=== PATIENT | male | born 1945 | race Caucasian/White ===

== ENCOUNTER 2024-11-26 12:43 | Outpatient (AMB) | payer MEDICARE, SELFPAY ==
--- NOTE | 2024-11-26 12:58 | MHC.OFFVIS ---
Vital Signs 11/26/24 13:01 Height 5 ft 8.7 in Weight 159 lb 13.362 oz BMI 23.8 BP 132/50 L Blood Pressure Location Lt brachial Position Sitting Pulse 58 Pulse Source Pulse Oximeter Pulse Oximetry (%) 90 L Oxygen Delivery Method Nasal Cannula Oxygen Flow Rate 6 Intake Visit Reasons: copd Allergies No Known Allergies Allergy (Verified 11/26/24 13:05) HPI Comments Details: The patient is here for pulmonary evaluation. The patient is a 78-year-old male with a known history of emphysema COPD for many years. He has been oxygen dependent since 2020. He was in his usual state health until back in 10/17/2024 when he started developing a cold. It subsequently resulting worsening respiratory symptoms weakness and he was taken to [facility]. There he had a CT scan of the chest. The CT scan was personally by me. It demonstrated extensive emphysema bilaterally all the way to the mid lung area. In addition to that some airspace disease throughout both lungs consistent with multilobar pneumonia. He was admitted placed on additional oxygen given antibiotics. His viral respiratory panel was negative. Urine Legionella and strep antigen negative. Microbiology was all negative. He was subsequently treated had a repeat CT scan of the chest which I also personally reviewed on 11/11/2024 demonstrating interval improvement of the airspace disease. 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 The patient has been on oxygen 6 L pulse with activity and also sleeps with the oxygen at 2.5 L. He has not been using oxygen at rest. He has not had PFTs in some time. Will go ahead and request that. The family is concerned that he is still coughing up mucus and is difficult for him to expectorate. He has a hard time clearing his secretions at this time. For that reason will request an Acapella valve for him that he can use for chest physical therapy. We will optimize his respiratory therapy by continuing the Breztri and also adding Ohtuvayre nebulized therapy in addition to adding azithromycin 3 times a week. He will come back for PFTs and EKG and blood work including a blood gas since his CO2 was elevated at 51 mmHg the last time was checked when he was sick back in September. Once the patient is stable on medication therapy and after his PFTs will have him come back and will talk about the importance of outpatient pulmonary rehabilitation. [facility] Medical History (Updated 11/26/24 @ 20:32 by Jan Carbajal MD) Chronic respiratory failure Pneumonia Social History (Updated 11/26/24 @ 13:04 by Rohini Diaz CMA) Patient Tobacco Use Status: Former Tobacco user Review of Systems Const Reports fatigue Eyes Denies change in vision ENT Reports dysphagia, Reports epistaxis, Reports nasal congestion and Reports nasal discharge Card Denies chest pain, Reports dyspnea and Reports dyspnea on exertion Resp Reports chest congestion, Reports cough, Reports dyspnea, Reports dyspnea on exertion and Reports wheezing GI Reports dysphagia Musc Reports no additional complaints Skin/Breast Denies rash Endo Reports fatigue Jonathan/Lymph Reports no additional complaints Aller/Immun Reports wheezing Physical Exam Vital Signs: Last Vital Signs Pulse 58 11/26/24 13:01 BP 132/50 L 11/26/24 13:01 Pulse Ox 90 L 11/26/24 13:01 Oxygen Delivery Method Nasal Cannula 11/26/24 13:01 Oxygen Flow Rate 6 11/26/24 13:01 BMI result Body Mass Index 23.8 Const General: comfortable HEENT Head: Yes normocephalic Neck Neck: Yes supple Chest Chest palpation & inspection: normal inspection of the chest Resp Effort & Inspection: normal respiratory effort and prolonged expiratory phase Auscultation: diminished lung sounds Cardio Heart sounds: S1 normal heart sound present and S2 normal heart sound present GI Palpation (GI): Soft to palpation Skin General skin exam: no rashes or lesions noted Extrem General: No clubbing and No cyanosis Results Reviewed Results Reviewed: Personally reviewed CT chest 09/2024 and 10/2024 with extensive emphysema and resolving nodular airspace disease Assessment & Plan Assessment & Plan (1) COPD (chronic obstructive pulmonary disease): Code(s): J44.9 - Chronic obstructive pulmonary disease, unspecified Category: Medical Qualifiers: COPD type: emphysema Emphysema type: centrilobular Qualified Code(s): J43.2 - Centrilobular emphysema (2) Pneumonia: Code(s): J18.9 - Pneumonia, unspecified organism Category: Medical Qualifiers: Pneumonia type: due to unspecified organism Laterality: bilateral Lung location: unspecified part of lung Qualified Code(s): J18.9 - Pneumonia, unspecified organism (3) Chronic respiratory failure: Code(s): J96.10 - Chronic respiratory failure, unspecified whether with hypoxia or hypercapnia Category: Medical Qualifiers: Respiratory failure complication: hypoxia and hypercapnia Qualified Code(s): J96.11 - Chronic respiratory failure with hypoxia; J96.12 - Chronic respiratory failure with hypercapnia Plan continue Breztri Add Azithromycin MWF Add Ohtuvayre nebs BID JEN as needed Prednisone taper, decreasing by 5mg every 5 days until down to 10mg daily PFTs and 6MWT EKG Bloodwork , bloodgas Orders: Orders PFT pulmonary function test Today J18.9 - Pneumonia, unspecified organism, J44.9 - Chronic obstructive pulmonary disease, unspecified Basic Metabolic Panel Today J18.9 - Pneumonia, unspecified organism, J44.9 - Chronic obstructive pulmonary disease, unspecified Overnight Pulse Oximetry Today J44.9 - Chronic obstructive pulmonary disease, unspecified Venous Blood Gas Today J18.9 - Pneumonia, unspecified organism, J44.9 - Chronic obstructive pulmonary disease, unspecified Immunoglobulins,IgG IgA IgM Today J18.9 - Pneumonia, unspecified organism, J44.9 - Chronic obstructive pulmonary disease, unspecified Erythrocyte Sedimentation Rate Today J18.9 - Pneumonia, unspecified organism, J44.9 - Chronic obstructive pulmonary disease, unspecified ECG 12 lead EKG Today J18.9 - Pneumonia, unspecified organism, J44.9 - Chronic obstructive pulmonary disease, unspecified Medications: New prednisone 5 mg PO DAILY 30 tabs 3RF 30 days prednisone 20 mg (2 x 10 mg) PO DAILY 60 tabs 3RF 30 days Coding Level of Care Code New Pt Level 5 (78929) Diagnoses Centrilobular emphysema J43.2 COPD type: emphysema Emphysema type: centrilobular Pneumonia of both lungs due to infectious organism, unspecified part of lung J18.9 Pneumonia type: due to unspecified organism Laterality: bilateral Lung location: unspecified part of lung Chronic respiratory failure with hypoxia and hypercapnia J96.11; J96.12 Respiratory failure complication: hypoxia and hypercapnia Time Spent (min) 60
[2024-11-26 13:01] VITALS: BP 132/50; PULSE 58; O2SAT 90; BMI 23.8
--- OUTSIDE RECORDS SUMMARY | 2024-11-26 14:50 | XMS_ITS | Clinical Summary ---
Author Organization [facility] ity Address [address] [place] [address] Care Team Providers Care Residency Program Coordinator Name Role Phone Jose Maria Diehl MD Primary Care Provide r Social History Tobacco Use Types Packs/Day Years Used Date Smoking Tobacco: Former Smokeless Tobacco: Former Sex and Gender Information Value Date Recorded Sex Assigned at Not on file Gender Identity Not on file Sexual Orientation Not on file Obstetrics History Last Filed Vital Signs Vital Sign Reading Time Taken Comments Blood Pressure 154/79 07/10/2023 2:01 PM EDT L A rm Pulse 57 07/10/2023 2:01 PM EDT Temperature - - Respiratory Rate - - Oxygen Saturation - - Inhaled Oxygen Concentration - - Weight 72.1 kg (159 lb) 07/10/2023 2:01 PM EDT Height 177.8 cm (5' 10 ) 07/10/2023 2:01 PM EDT Body Mass Index 22.81 07/10/2023 2:01 PM EDT Plan of Treatment Health Maintenance Due Date Last Done Comments Diabetes: Annual GFR (Glomer ular Filtration Rate) 1945 Pneumococcal Vaccine: 65+ Ye ars (1 of 2 - PCV) 1953 Diabetes: Annual Foot Exam 1957 Diabetes: Annual Retina Eye Exam 1957 DTaP,Tdap,and Td Vaccines (1 - Tdap) 1966 Zoster Vaccines (1 of 2) 1997 Cholesterol Screening (Lipid Panel) 10/07/2022 Depression Screening 10/07/2022 Falls Risk Assessment 10/07/2022 Hepatitis C Screening 10/07/2022 Social Influencers of Health Screening 10/07/2022 Diabetes: Annual Urine Albumin-Creatinine Ratio (uACR) 10/14/2022 Diabetes: Blood Sugar Contro l Test (HGBA1C) 10/14/2022 Hypertension/CHF/CAD Annual BMP Blood Test 10/14/2022 RSV Immunization Patients 60 + Years Old (1 - 1-dose 75+ series) 2022 COVID-19 Vaccine (2023-2 5 season) 2024 Influenza Vaccine (#1) 2024 HIB Vaccines Aged Out No longer eligi ble based on patient's age to complete this topic HPV Vaccines Aged Out No longer eligi ble based on patient's age to complete this topic Hepatitis A Vaccines Aged Out No long er eligible based on patient's age to complete this topic Hepatitis B Vaccines Aged Out No long er eligible based on patient's age to complete this topic IPV Vaccines Aged Out No longer eligi ble based on patient's age to complete this topic MMR Vaccines Aged Out No longer eligi ble based on patient's age to complete this topic Meningococcal ACWY Vaccine Aged Out N o longer eligible based on patient's age to complete this topic RSV Immunization Patients Un darryl 20 months Aged Out No longer eligible b ased on patient's age to complete this topic Varicella Vaccines Aged Out No longer eligible based on patient's age to complete this topic Care Teams Residency Program Coordinator Relationship Specialty Start Date End Date Jose Maria Diehl MD [address] [place] [address] [place] PCP - General Internal Medicine 10/08/19
== END 2024-11-26 13:47 | disposition home or self-care (01) ==
PROVIDERS: PCP Internal Medicine; Visit Provider Hospitalist
DX: J43.2 Centrilobular emphysema (principal); J18.9 Pneumonia, unspecified organism; J96.11 Chronic respiratory failure with hypoxia; J96.12 Chronic respiratory failure with hypercapnia
CPT/HCPCS: 99205

== ENCOUNTER → 2024-11-26 12:43 | Outpatient (BNVA) | payer MEDICARE, SELFPAY | PROVIDERS: PCP Internal Medicine; Visit Provider Hospitalist | DX: J43.2 Centrilobular emphysema (principal); J18.9 Pneumonia, unspecified organism; J44.9 Chronic obstructive pulmonary disease, unspecified; J96.11 Chronic respiratory failure with hypoxia; J96.12 Chronic respiratory failure with hypercapnia; Z99.81 Dependence on supplemental oxygen | CPT/HCPCS: 99202 ==

== ENCOUNTER 2024-12-12 16:01 | Outpatient (REF) | payer MEDICARE, SELFPAY ==
--- OUTSIDE RECORDS SUMMARY | 2024-12-12 16:03 | XMS_ITS | Clinical Summary ---
Author Organization [facility] ity Address [address] [place] [address] Care Team Providers Care Hearings Reporter Name Role Phone Jose Maria Diehl MD Primary Care Provide r Social History Tobacco Use Types Packs/Day Years Used Date Smoking Tobacco: Former Smokeless Tobacco: Former Sex and Gender Information Value Date Recorded Sex Assigned at Not on file Legal Sex Male 6:43 AM EST Gender Identity Not on file Sexual Orientation [...] (Glomer ular Filtration Rate) 1945 Pneumococcal Vaccine: 50+ Ye ars (1 of 2 - PCV) [...] age to complete this topic Care Teams Hearings Reporter Relationship Specialty Start Date End Date Jose Maria Diehl MD [address] [place], [place] [address]jesus Erica, [place] PCP - General Internal Medicine 10/08/19
--- NOTE | 2024-12-12 16:05 | PFT_ITS ---
Indication: COPD Spirometry [FEV1 to FVC 34%; FEV1 1.12 L; FVC 3.26 L. no significant response to bronchodilators noted.] Lung Volumes [Total lung capacity 102% predicted; residual volume 124% predicted] Diffusion Capacity [DLCO 26% predicted] Comparisons [none] Interpretation [Station obstructive ventilatory defect consistent with severe COPD. No significant response to bronchodilators noted. Lung volume with a trend of air trapping due to the COPD. The patient does have his severe diffusion impairment likely seconday to the COPD. Clinical correlation warranted.] MTDD
== END 2024-12-12 16:02 | disposition home or self-care (01) ==
LOC: HO.RESP 16:01
PROVIDERS: PCP Internal Medicine; Visit Provider Hospitalist
DX: J44.9 Chronic obstructive pulmonary disease, unspecified (principal); J18.9 Pneumonia, unspecified organism
CPT/HCPCS: 94010; 94640; 94727; 94729

== ENCOUNTER → 2024-12-12 16:05 | Outpatient (BNV) | payer MEDICARE, SELFPAY | PROVIDERS: PCP Internal Medicine; Visit Provider Hospitalist | DX: J44.9 Chronic obstructive pulmonary disease, unspecified (principal) | CPT/HCPCS: 94060; 94727; 94729 ==

== ENCOUNTER 2024-12-25 10:52 | Outpatient (AMB) | payer MEDICARE, SELFPAY ==
[2024-12-25 11:05] VITALS: BP 124/50; PULSE 56; O2SAT 91; BMI 24.8
--- NOTE | 2024-12-25 11:05 | MHC.OFFVIS ---
Vital Signs 12/25/24 11:05 Height 5 ft 8.7 in Weight 166 lb 7.184 oz BMI 24.8 BP 124/50 L Blood Pressure Location Lt brachial Position Sitting Pulse 56 Pulse Source Pulse Oximeter Pulse Oximetry (%) 91 L Oxygen Delivery Method Nasal Cannula Oxygen Flow Rate 6 Intake Visit Reasons: COPD/6MW Allergies No Known Allergies Allergy (Verified 12/25/24 11:07) HPI Comments Details: The patient is a 79-year-old male with a known history of emphysema COPD for many years. He has been oxygen dependent since 2020. He was in his usual state health until back in 10/17/2024 when he started developing a cold. It subsequently resulting worsening respiratory symptoms weakness and he was taken to [facility]. There he had a CT scan of the chest. The CT scan was personally by me. It demonstrated extensive emphysema bilaterally all the way to the mid lung area. In addition to that some airspace disease throughout both lungs consistent with multilobar pneumonia. He was admitted placed on additional oxygen given antibiotics. His viral respiratory panel was negative. Urine Legionella and strep antigen negative. Microbiology was all negative. He was subsequently treated had a repeat CT scan of the chest which I also personally reviewed on 11/11/2024 demonstrating interval improvement of the airspace disease. 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 The patient has been on oxygen 6 L pulse with activity and also sleeps with the oxygen at 2.5 L. He has not been using oxygen at rest. He has not had PFTs in some time. Will go ahead and request that. The family is concerned that he is still coughing up mucus and is difficult for him to expectorate. He has a hard time clearing his secretions at this time. For that reason will request an Acapella valve for him that he can use for chest physical therapy. We will optimize his respiratory therapy by continuing the Breztri and also adding Ohtuvayre nebulized therapy in addition to adding azithromycin 3 times a week. He will come back for PFTs and EKG and blood work including a blood gas since his CO2 was elevated at 51 mmHg the last time was checked when he was sick back in September. Once the patient is stable on medication therapy and after his PFTs will have him come back and will talk about the importance of outpatient pulmonary rehabilitation. 12/25/2024 the patient is here for a pulmonary follow-up visit. Overall he is doing fair. He continues to have significant shortness of breath. He was not able to get the new nebulized therapy, Ohtuvayre, so will switch him over to DuoNeb b.i.d. seems to be tolerating it just fine. He continues on his respiratory inhalers. The patient continues uses oxygen at 5-6 L pulse. We did do a brief walking oximetry today indeed he does require between 5-6 L pulse to maintain a pulse ox in the low 90s. Therefore explained to him that he is not a good candidate for battery operated POC because is going to eat up the battery very quickly and is going to cause him more headaches. In the future though we can consider a continuous portable oxygen concentrator. He is going to be started pulmonary rehabilitation soon so will be able to better address the question. He did have PFTs which we personally reviewed demonstrating severe COPD with trend air trapping and severe diffusion impairment likely secondary to emphysematous changes. Therefore, he will continue with the oxygen. As far as the prednisone he is not able to get off the prednisone we tried cutting down by 5 mg but he was not able to do so. Therefore, I sent him 2.5 mg tablets and he could try decreasing by 2.5 instead to see if we can get him down to a baseline of 10 mg daily. I am hopeful that with the additional theophylline that could help accentuate the effects of the prednisone and hopefully decrease the medication that weight. We did talk about the prednisone and ultimately will need to have blood work for the initially come in the next few weeks and undergo blood work including a blood gas was requested the last time [facility] Medical History (Updated 11/26/24 @ 20:32 by Jan Carbajal MD) Chronic respiratory failure Pneumonia Social History Patient Tobacco Use Status: Former Tobacco user Review of Systems Const Denies fever(s) Eyes Denies change in vision ENT Reports dysphagia, Reports epistaxis, Reports nasal congestion and Reports nasal discharge Card Denies chest pain, Reports dyspnea and Reports dyspnea on exertion Resp Reports chest congestion, Reports cough, Reports dyspnea, Reports dyspnea on exertion and Reports wheezing GI Reports dysphagia Musc Reports no additional complaints Skin/Breast Denies rash Jonathan/Lymph Reports no additional complaints Aller/Immun Reports wheezing Physical Exam Vital Signs: Last Vital Signs Pulse 56 12/25/24 11:05 BP 124/50 L 12/25/24 11:05 Pulse Ox 91 L 12/25/24 11:05 Oxygen Delivery Method Nasal Cannula 12/25/24 11:05 Oxygen Flow Rate 6 12/25/24 11:05 BMI result Body Mass Index 24.8 Const General: comfortable HEENT Head: Yes normocephalic Neck Neck: Yes supple Chest Chest palpation & inspection: normal inspection of the chest Resp Effort & Inspection: normal respiratory effort and prolonged expiratory phase Auscultation: diminished lung sounds Cardio Heart sounds: S1 normal heart sound present and S2 normal heart sound present GI Palpation (GI): Soft to palpation Skin General skin exam: no rashes or lesions noted Extrem General: No clubbing and No cyanosis Assessment & Plan Assessment & Plan (1) COPD (chronic obstructive pulmonary disease): Code(s): J44.9 - Chronic obstructive pulmonary disease, unspecified Category: Medical Qualifiers: COPD type: emphysema Emphysema type: centrilobular Qualified Code(s): J43.2 - Centrilobular emphysema (2) Chronic respiratory failure: Code(s): J96.10 - Chronic respiratory failure, unspecified whether with hypoxia or hypercapnia Category: Medical Qualifiers: Respiratory failure complication: hypoxia and hypercapnia Qualified Code(s): J96.11 - Chronic respiratory failure with hypoxia; J96.12 - Chronic respiratory failure with hypercapnia Plan continue Breztri continue Azithromycin MWF could not get Ohtuvayre nebs BID continue Duoneb BID JEN as needed Prednisone taper, decreasing by 2.5mg every 5-10 days days until down to 10mg daily start rehab EKG Bloodwork , bloodgas consider Daliresp F/U 3-4 months Orders: Orders Theophylline Today J43.2 - Centrilobular emphysema Medications: New prednisone 5 mg (2 x 2.5 mg) PO DAILY 30 days 60 tabs 3RF theophylline ER 200 mg PO Q12H 30 days 60 tabs 5RF Coding Level of Care Code Est Pt Level 4 (96158) Diagnoses Centrilobular emphysema J43.2 COPD type: emphysema Emphysema type: centrilobular Chronic respiratory failure with hypoxia and hypercapnia J96.11; J96.12 Respiratory failure complication: hypoxia and hypercapnia Time Spent (min) 18
--- OUTSIDE RECORDS SUMMARY | 2024-12-25 12:56 | XMS_ITS | Clinical Summary ---
Author Organization [facility] Address [address] [place] [address] Care Team Providers Care Regional Climate Change Analyst Name Role Phone Jose Maria Diehl MD [...] Annual GFR (Glomer ular Filtration Rate) 1947 Diabetes: Annual Foot Exam 1957 Diabetes: Annual Retina Eye Exam 1957 DTaP,Tdap,and Td Vaccines (1 - Tdap) 1966 Pneumococcal Vaccine: 50+ Ye ars (1 of 2 - PCV) 1966 Zoster Vaccines (1 of 2) 1997 [...] patient's age to complete this topic Meningococcal B Vacine Aged Out No lo nger eligible based on patient's age to complete this topic RSV Immunization Patients Un darryl 20 months Aged Out No longer eligible b ased on patient's age to complete this topic Varicella Vaccines Aged Out No longer eligible based on patient's age to complete this topic Care Teams Regional Climate Change Analyst Relationship Specialty Start Date End Date Jose Maria Diehl MD [address] [place] [address] [place] PCP - General Internal Medicine 10/08/19
== END 2024-12-25 11:48 | disposition home or self-care (01) ==
PROVIDERS: PCP Internal Medicine; Visit Provider Hospitalist
DX: J43.2 Centrilobular emphysema (principal); J96.11 Chronic respiratory failure with hypoxia; J96.12 Chronic respiratory failure with hypercapnia
CPT/HCPCS: 99214

== ENCOUNTER → 2024-12-25 10:52 | Outpatient (BNVA) | payer MEDICARE, SELFPAY | PROVIDERS: PCP Internal Medicine; Visit Provider Hospitalist | DX: J43.2 Centrilobular emphysema (principal); J96.11 Chronic respiratory failure with hypoxia; J96.12 Chronic respiratory failure with hypercapnia | CPT/HCPCS: 99212 ==

== ENCOUNTER 2025-01-13 13:21 | Outpatient (REF) | payer MEDICARE, SELFPAY | END 2025-01-13 13:22 | disposition home or self-care (01) | LOC: HO.WFDLDS 13:21 | PROVIDERS: Visit Provider Hospitalist | DX: Z13.89 Encounter for screening for other disorder (principal) ==

== ENCOUNTER → 2025-01-15 12:58 | Outpatient (REF) | payer MEDICARE, SELFPAY ==
--- NOTE | 2025-01-15 13:02 | ECG_ITS ---
Test Reason : copd Blood Pressure : */* mmHG Vent. Rate : 64 BPM Atrial Rate : 64 BPM P-R Int : 138 ms QRS Dur : 90 ms QT Int : 376 ms P-R-T Axes : 72 59 49 degrees QTcB Int : 387 ms Sinus rhythm with Premature atrial complexes Otherwise normal ECG No previous ECGs available Referred By: Jan Carbajal Electronically Signed By: Jerry Guevara
[2025-01-15 13:31] LABS: Venous Blood Gas Refer to POC result
[2025-01-15 13:32] LABS: VBG Base Excess 5.8 mmol/L; VBG HCO3 32 mmol/L (22-26); VBG pCO2 57 mmHg; VBG pH 7.36 (7.32-7.43); VBG pO2 26 mmHg
[2025-01-15 14:45] LABS: Anion Gap 12 (12-20); Blood Urea Nitrogen 21 mg/dL (9-16); Calcium 9.8 mg/dL (8.4-10.2); Carbon Dioxide 30 mmol/L (22-29); Chloride 105 mmol/L (96-108); Estimated Glomerular Filt Rate > 60; Glucose Random 92 mg/dL (60-115); Potassium 3.6 mmol/L (3.3-5.1); Sodium 143 mmol/L (135-145)
[2025-01-15 14:48] LABS: Erythrocyte Sedimentation Rate 31 MM/HR (0-15)
--- OUTSIDE RECORDS SUMMARY | 2025-01-15 15:24 | XMS_ITS | Clinical Summary ---
Author Organization [facility] ity Address [address] [place] [address] Care Team Providers Care Commissioning Engineer Name Role Phone Jose Maria Diehl MD [...] age to complete this topic Care Teams Commissioning Engineer Relationship Specialty Start Date End Date Jose Maria Diehl MD [address] [place] [address] [place] PCP - General Internal Medicine 10/08/19
[2025-01-17 02:28] LABS: IgA 125 mg/dL (70-320); IgG 632 mg/dL (600-1540); IgM 736 mg/dL (50-300)
== END ==
LOC: HO.CARD 12:58
PROVIDERS: Visit Provider Hospitalist
DX: J44.9 Chronic obstructive pulmonary disease, unspecified (principal); J43.2 Centrilobular emphysema; J18.9 Pneumonia, unspecified organism; Z79.899 Other long term (current) drug therapy
CPT/HCPCS: 36415; 80048; 80198; 82784; 82803; 85652; 93005

== ENCOUNTER → 2025-01-15 13:02 | Outpatient (BNV) | payer MEDICARE, SELFPAY | PROVIDERS: Visit Provider Internal Medicine Cardiovascular Disease | DX: I49.1 Atrial premature depolarization (principal) | CPT/HCPCS: 93010 ==

== ENCOUNTER 2025-03-27 10:54 | Outpatient (AMB) | payer MEDICARE, SELFPAY ==
[2025-03-27 10:58] VITALS: BP 136/50; PULSE 59; O2SAT 93; BMI 26.0
--- NOTE | 2025-03-27 10:58 | A.OFFVIS_ITS ---
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 He has been oxygen dependent since 2020. He was in his usual state health until back in 10/17/2024 when he started developing a cold. It subsequently resulting worsening respiratory symptoms weakness and he was taken to [facility]. There he had a CT scan of the chest. The CT scan was personally by me. It demonstrated extensive emphysema bilaterally all the way to the mid lung area. In addition to that some airspace disease throughout both lungs consistent with multilobar pneumonia. He was admitted placed on additional oxygen given antibiotics. His viral respiratory panel was negative. Urine Legionella and strep antigen negative. Microbiology was all negative. He was subsequently treated had a repeat CT scan of the chest which I also personally reviewed on 11/11/2024 demonstrating interval improvement of the airspace disease. 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 The patient has been on oxygen 6 L pulse with activity and also sleeps with the oxygen at 2.5 L. He has not been using oxygen at rest. He has not had PFTs in some time. Will go ahead and request that. The family is concerned that he is still coughing up mucus and is difficult for him to expectorate. He has a hard time clearing his secretions at this time. For that reason will request an Acapella valve for him that he can use for chest physical therapy. We will optimize his respiratory therapy by continuing the Breztri and also adding Ohtuvayre nebulized therapy in addition to adding azithromycin 3 times a week. He will come back for PFTs and EKG and blood work including a blood gas since his CO2 was elevated at 51 mmHg the last time was checked when he was sick back in September. Once the patient is stable on medication therapy and after his PFTs will have him come back and will talk about the importance of outpatient pulmonary rehabilitation. 12/25/2024 the patient is here for a pulmonary follow-up visit. Overall he is doing fair. He continues to have significant shortness of breath. He was not able to get the new nebulized therapy, Ohtuvayre, so will switch him over to DuoNeb b.i.d. seems to be tolerating it just fine. He continues on his respiratory inhalers. The patient continues uses oxygen at 5-6 L pulse. We did do a brief walking oximetry today indeed he does require between 5-6 L pulse to maintain a pulse ox in the low 90s. Therefore explained to him that he is not a good candidate for battery operated POC because is going to eat up the battery very quickly and is going to cause him more headaches. In the future though we can consider a continuous portable oxygen concentrator. He is going to be started pulmonary rehabilitation soon so will be able to better address the question. He did have PFTs which we personally reviewed demonstrating severe COPD with trend air trapping and severe diffusion impairment likely secondary to emphysematous changes. Therefore, he will continue with the oxygen. As far as the prednisone he is not able to get off the prednisone we tried cutting down by 5 mg but he was not able to do so. Therefore, I sent him 2.5 mg tablets and he could try decreasing by 2.5 instead to see if we can get him down to a baseline of 10 mg daily. I am hopeful that with the additional theophylline that could help accentuate the effects of the prednisone and hopefully decrease the medication that weight. We did talk about the prednisone and ultimately will need to have blood work for the initially come in the next few weeks and undergo blood work including a blood gas was requested the last time 03/27/2025 the patient is here for pulmonary follow-up visit. Overall the patient is doing well. He has been weaning down the prednisone down to about 5 mg daily. In addition to that the patient has been using the theophylline on a daily basis. He continues with respiratory medications. He will be starting pulmonary rehabilitation soon. Overall doing well. The patient is going to continue weaning down prednisone hopefully can stop in the coming months. In addition to that he has has 1 more refill for the azithromycin he also will stop them. He did have blood work his theophylline level is low normal which is where rightward 1 it. He will continue that for now. He will continue with the current respiratory therapy his nebulizer therapy and then will follow-up in 4-6 months. He continues use the oxygen with good effect. We did talk about the blood work and his CO2 slightly elevated at 57 mmHg. Will continue to assess that. I now seems to be pretty stable and does not need additional therapies. Will follow-up in 4-6 months if any issues arise he will call for an earlier assessment. She recently to [facility] Medical History (Updated 11/26/24 @ 20:32 by Jan Carbajal MD) Chronic respiratory failure Pneumonia Social History Patient Tobacco Use Status: Former Tobacco user Review of Systems Const Denies fever(s) Eyes Denies change in vision ENT Reports dysphagia, Reports epistaxis, Reports nasal congestion and Reports nasal discharge Card Denies chest pain, Reports dyspnea and Reports dyspnea on exertion Resp Reports chest congestion, Reports cough, Reports dyspnea, Reports dyspnea on exertion and Reports wheezing GI Reports dysphagia Musc Reports no additional complaints Skin/Breast Denies rash Jonathan/Lymph Reports no additional complaints Aller/Immun Reports wheezing Physical Exam Vital Signs: Last Vital Signs Pulse 59 03/27/25 10:58 BP 136/50 L 03/27/25 10:58 Pulse Ox 93 03/27/25 10:58 Oxygen Delivery Method Nasal Cannula 03/27/25 10:58 Oxygen Flow Rate 5 03/27/25 10:58 BMI result Body Mass Index 26.0 Const General: comfortable HEENT Head: Yes normocephalic Neck Neck: Yes supple Chest Chest palpation & inspection: normal inspection of the chest Resp Effort & Inspection: normal respiratory effort and prolonged expiratory phase Auscultation: diminished lung sounds Cardio Heart sounds: S1 normal heart sound present and S2 normal heart sound present GI Palpation (GI): Soft to palpation Skin General skin exam: no rashes or lesions noted Extrem General: No clubbing and No cyanosis Assessment & Plan Assessment & Plan (1) COPD (chronic obstructive pulmonary disease): Code(s): J44.9 - Chronic obstructive pulmonary disease, unspecified Category: Medical Qualifiers: COPD type: emphysema Emphysema type: centrilobular Qualified Code(s): J43.2 - Centrilobular emphysema (2) Chronic respiratory failure: Code(s): J96.10 - Chronic respiratory failure, unspecified whether with hypoxia or hypercapnia Category: Medical Qualifiers: Respiratory failure complication: hypoxia and hypercapnia Qualified Code(s): J96.11 - Chronic respiratory failure with hypoxia; J96.12 - Chronic respiratory failure with hypercapnia Plan continue Breztri continue Azithromycin MWF will try to stop after rx ends could not get Ohtuvayre nebs BID continue Duoneb BID JEN as needed start Rehab Prednisone taper, 10mg everyother day, then 5mg every other day, then stop consider Daliresp F/U 3-4 months Coding Level of Care Code Est Pt Level 4 (30121) Complex EM visit Add On G2211 Diagnoses Centrilobular emphysema J43.2 COPD type: emphysema Emphysema type: centrilobular Chronic respiratory failure with hypoxia and hypercapnia J96.11; J96.12 Respiratory failure complication: hypoxia and hypercapnia Time Spent (min) 16
--- OUTSIDE RECORDS SUMMARY | 2025-03-27 11:45 | XMS_ITS | Clinical Summary ---
Author Organization [facility] ity Address [address] [place] [address] Care Team Providers Care Felled Seam Operator Name Role Phone Jose Maria Diehl MD [...] Annual BMP Blood Test 10/14/2022 RSV Immunization Adult Patie nts (1 - 1-dose 75+ series) 2022 COVID-19 Vaccine (2023-2 5 season) 2024 Influenza Vaccine (Season Ended) 2025 HIB Vaccines Aged Out No longer eligi [...] age to complete this topic Meningococcal B Vaccine Aged Out No l onger eligible based on patient's age to complete this topic RSV Immunization Patients Un darryl 20 months Aged Out No longer eligible b ased on patient's age to complete this topic Varicella Vaccines Aged Out No longer eligible based on patient's age to complete this topic Care Teams Felled Seam Operator Relationship Specialty Start Date End Date Jose Maria Diehl MD [address] [place] [address] [place] PCP - General Internal Medicine 10/08/19
== END 2025-03-27 11:28 | disposition home or self-care (01) ==
LOC: HO.HPS 10:54
PROVIDERS: PCP Internal Medicine; Visit Provider Hospitalist
DX: J43.2 Centrilobular emphysema (principal); J96.11 Chronic respiratory failure with hypoxia; J96.12 Chronic respiratory failure with hypercapnia
CPT/HCPCS: 99214; G2211

== ENCOUNTER → 2025-03-27 10:54 | Outpatient (BNVA) | payer MEDICARE, SELFPAY | PROVIDERS: PCP Internal Medicine; Visit Provider Hospitalist | DX: J43.2 Centrilobular emphysema (principal); J96.11 Chronic respiratory failure with hypoxia; J96.12 Chronic respiratory failure with hypercapnia | CPT/HCPCS: 99212 ==

== ENCOUNTER 2025-09-04 10:55 | Outpatient (AMB) | payer MEDICARE, SELFPAY ==
[2025-09-04 10:59] VITALS: BP 120/58; PULSE 57; O2SAT 91; BMI 25.0
--- NOTE | 2025-09-04 10:59 | MHC.OFFVIS ---
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 He has been oxygen dependent since 2020. He was in his usual state health until back in 10/17/2024 when he started developing a cold. It subsequently resulting worsening respiratory symptoms weakness and he was taken to [facility]. There he had a CT scan of the chest. The CT scan was personally by me. It demonstrated extensive emphysema bilaterally all the way to the mid lung area. In addition to that some airspace disease throughout both lungs consistent with multilobar pneumonia. He was admitted placed on additional oxygen given antibiotics. His viral respiratory panel was negative. Urine Legionella and strep antigen negative. Microbiology was all negative. He was subsequently treated had a repeat CT scan of the chest which I also personally reviewed on 11/11/2024 demonstrating interval improvement of the airspace disease. 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 The patient has been on oxygen 6 L pulse with activity and also sleeps with the oxygen at 2.5 L. He has not been using oxygen at rest. He has not had PFTs in some time. Will go ahead and request that. The family is concerned that he is still coughing up mucus and is difficult for him to expectorate. He has a hard time clearing his secretions at this time. For that reason will request an Acapella valve for him that he can use for chest physical therapy. We will optimize his respiratory therapy by continuing the Breztri and also adding Ohtuvayre nebulized therapy in addition to adding azithromycin 3 times a week. He will come back for PFTs and EKG and blood work including a blood gas since his CO2 was elevated at 51 mmHg the last time was checked when he was sick back in September. Once the patient is stable on medication therapy and after his PFTs will have him come back and will talk about the importance of outpatient pulmonary rehabilitation. 12/25/2024 the patient is here for a pulmonary follow-up visit. Overall he is doing fair. He continues to have significant shortness of breath. He was not able to get the new nebulized therapy, Ohtuvayre, so will switch him over to DuoNeb b.i.d. seems to be tolerating it just fine. He continues on his respiratory inhalers. The patient continues uses oxygen at 5-6 L pulse. We did do a brief walking oximetry today indeed he does require between 5-6 L pulse to maintain a pulse ox in the low 90s. Therefore explained to him that he is not a good candidate for battery operated POC because is going to eat up the battery very quickly and is going to cause him more headaches. In the future though we can consider a continuous portable oxygen concentrator. He is going to be started pulmonary rehabilitation soon so will be able to better address the question. He did have PFTs which we personally reviewed demonstrating severe COPD with trend air trapping and severe diffusion impairment likely secondary to emphysematous changes. Therefore, he will continue with the oxygen. As far as the prednisone he is not able to get off the prednisone we tried cutting down by 5 mg but he was not able to do so. Therefore, I sent him 2.5 mg tablets and he could try decreasing by 2.5 instead to see if we can get him down to a baseline of 10 mg daily. I am hopeful that with the additional theophylline that could help accentuate the effects of the prednisone and hopefully decrease the medication that weight. We did talk about the prednisone and ultimately will need to have blood work for the initially come in the next few weeks and undergo blood work including a blood gas was requested the last time 03/27/2025 the patient is here for pulmonary follow-up visit. Overall the patient is doing well. He has been weaning down the prednisone down to about 5 mg daily. In addition to that the patient has been using the theophylline on a daily basis. He continues with respiratory medications. He will be starting pulmonary rehabilitation soon. Overall doing well. The patient is going to continue weaning down prednisone hopefully can stop in the coming months. In addition to that he has has 1 more refill for the azithromycin he also will stop them. He did have blood work his theophylline level is low normal which is where rightward 1 it. He will continue that for now. He will continue with the current respiratory therapy his nebulizer therapy and then will follow-up in 4-6 months. He continues use the oxygen with good effect. We did talk about the blood work and his CO2 slightly elevated at 57 mmHg. Will continue to assess that. I now seems to be pretty stable and does not need additional therapies. Will follow-up in 4-6 months if any issues arise he will call for an earlier assessment. 09/04/2025 the patient is here for pulmonary follow-up visit. Overall he is doing okay. Although recently he did develop a viral syndrome started developing worsening cough. But before that he was doing okay. He could not get off the prednisone altogether. He did try to come down but once he came down his breathing got worse. Therefore he seems like 5 mg work well for him. Right now since he is sick he is going to stay on 5 mg daily but once he feels better he will try to titrate down to 5 mg every other day. The patient has been tolerating the Breztri inhaler very good. Since he is still requiring prednisone he has chronic bronchitis will start him on Daliresp at this time. He will start slowly to allow some tolerance with the GI potential side effects and then after that he can take it daily. The patient also will continue with neb treatments 4 times a day. He continues with his oxygen with good effect. He will return in 4-6 months before that have him get a chest x-ray. If any issues arise she can always call further recommendations. [facility] Medical History (Updated 11/26/24 @ 20:32 by Jan Carbajal MD) Chronic respiratory failure Pneumonia Social History Patient Tobacco Use Status: Former Tobacco user Review of Systems Const Denies fever(s) Eyes Denies change in vision ENT Reports dysphagia, Denies epistaxis, Reports nasal congestion and Reports nasal discharge Card Denies chest pain, Reports dyspnea and Reports dyspnea on exertion Resp Reports chest congestion, Reports cough, Reports dyspnea, Reports dyspnea on exertion and Reports wheezing GI Reports dysphagia Musc Reports no additional complaints Skin/Breast Denies rash Jonathan/Lymph Reports no additional complaints Aller/Immun Reports wheezing Physical Exam Vital Signs: Last Vital Signs Pulse 57 09/04/25 10:59 BP 120/58 L 09/04/25 10:59 Pulse Ox 91 L 09/04/25 10:59 Oxygen Delivery Method Nasal Cannula 09/04/25 10:59 Oxygen Flow Rate 3 09/04/25 10:59 BMI result Body Mass Index 25.0 Const General: comfortable HEENT Head: Yes normocephalic Neck Neck: Yes supple Chest Chest palpation & inspection: normal inspection of the chest Resp Effort & Inspection: normal respiratory effort and prolonged expiratory phase Auscultation: diminished lung sounds Cardio Heart sounds: S1 normal heart sound present and S2 normal heart sound present GI Palpation (GI): Soft to palpation Skin General skin exam: no rashes or lesions noted Extrem General: No clubbing and No cyanosis Assessment & Plan Assessment & Plan (1) COPD (chronic obstructive pulmonary disease): Code(s): J44.9 - Chronic obstructive pulmonary disease, unspecified Category: Medical Qualifiers: COPD type: emphysema Emphysema type: centrilobular Qualified Code(s): J43.2 - Centrilobular emphysema (2) Chronic respiratory failure: Code(s): J96.10 - Chronic respiratory failure, unspecified whether with hypoxia or hypercapnia Category: Medical Qualifiers: Respiratory failure complication: hypoxia and hypercapnia Qualified Code(s): J96.11 - Chronic respiratory failure with hypoxia; J96.12 - Chronic respiratory failure with hypercapnia Plan continue Breztri start Augmentin could not get Ohtuvayre nebs BID continue Duoneb BID JEN as needed Prednisone 5mg daily start Daliresp CXR F/U 3-4 months Orders: Orders XR chest 2V 09/04/25 J18.9 - Pneumonia, unspecified organism, J43.2 - Centrilobular emphysema Medications: New roflumilast 500 mcg PO DAILY 90 tabs 3RF 90 days J43.2 - Centrilobular emphysema prednisone 5 mg PO DAILY 90 tabs 11RF 90 days amoxicillin-pot clavulanate 875-125 mg 1 tab PO BID 20 tabs 0RF 10 days Changed From ipratropium-albuterol 0.5 mg-3 mg(2.5 mg base)/3 mL 3 mL inhalation BID 30 days 180 mL 11RF J44.9 - Chronic obstructive pulmonary disease, unspecified To ipratropium-albuterol 0.5 mg-3 mg(2.5 mg base)/3 mL 3 mL inhalation QID 360 mL 11RF 30 days J44.9 - Chronic obstructive pulmonary disease, unspecified Refilled ipratropium-albuterol 0.5 mg-3 mg(2.5 mg base)/3 mL 3 mL inhalation BID 30 days 180 mL 11RF J44.9 - Chronic obstructive pulmonary disease, unspecified Discontinued prednisone Discontinued Reason: Duplicate 5 mg (2 x 2.5 mg) PO DAILY 30 days 60 tabs 3RF Coding Level of Care Code Est Pt Level 4 (35166) Complex EM visit Add On G2211 Diagnoses Centrilobular emphysema J43.2 COPD type: emphysema Emphysema type: centrilobular Chronic respiratory failure with hypoxia and hypercapnia J96.11; J96.12 Respiratory failure complication: hypoxia and hypercapnia Time Spent (min) 17
--- OUTSIDE RECORDS SUMMARY | 2025-09-04 13:08 | XMS_ITS | Clinical Summary ---
Author Organization [facility] Address [address] [place] [address] Care Team Providers Care Theatrical Trouper Name Role Phone Jose Maria Diehl MD [...] 2) 1997 Cholesterol Screening (Lipid Panel) 10/07/2022 Falls Risk Assessment 10/07/2022 Hepatitis C Screening 10/07/2022 Social Influencers of Health Screening 10/07/2022 Diabetes: Annual Urine Albumin-Creatinine Ratio (uACR) 10/14/2022 Diabetes: Blood Sugar Contro l Test (HGBA1C) 10/14/2022 Hypertension/CHF/CAD Annual BMP Blood Test 10/14/2022 RSV Immunization Adult Patie nts (1 - 1-dose 75+ series) 2022 Depression Screening 10/29/2024 COVID-19 Vaccine ( - 2023-2 5 season) 2025 Influenza Vaccine (#1) 2025 HIB Vaccines Aged Out No longer [...] age to complete this topic Care Teams Theatrical Trouper Relationship Specialty Start Date End Date Jose Mraia Diehl MD [address] [place] [address] [place] PCP - General Internal Medicine 10/08/19
== END 2025-09-04 11:35 | disposition home or self-care (01) ==
LOC: HO.HPS 10:56
PROVIDERS: PCP Internal Medicine; Visit Provider Hospitalist
DX: J43.2 Centrilobular emphysema (principal); J96.11 Chronic respiratory failure with hypoxia; J96.12 Chronic respiratory failure with hypercapnia
CPT/HCPCS: 99214; G2211

== ENCOUNTER → 2025-09-04 10:55 | Outpatient (BNVA) | payer MEDICARE, SELFPAY | PROVIDERS: PCP Internal Medicine; Visit Provider Hospitalist | DX: J43.2 Centrilobular emphysema (principal); J96.11 Chronic respiratory failure with hypoxia; J96.12 Chronic respiratory failure with hypercapnia; Z87.01 Personal history of pneumonia (recurrent); Z99.81 Dependence on supplemental oxygen | CPT/HCPCS: 99212 ==